=== PATIENT | female | born 1995 ===

== ENCOUNTER 2017-06-24 22:09 | Emergency (ER) | payer SELFPAY ==
[2017-06-24 22:38] VITALS: BP 103/66; PULSE 73; RESP 20; TEMP 97.7; O2SAT 99
--- NOTE | 2017-06-25 00:09 | C.PDOC ---
History Of Present Illness 21 y/o female presents to ED for evaluation on laceration sustained by broken bottle of nail guinean prior to arrival. Patient states she was opening nail guinean and bottle broke sustaining laceration to left second finger. Patient denies change in sensation, nausea, vomiting or any other complaints at this time. Tetanus vaccine is not up to date. Time Seen by Provider: 06/24/17 22:41 Chief Complaint (Nursing): Abnormal Skin Integrity History Per: Patient History/Exam Limitations: no limitations Onset/Duration Of Symptoms: Hrs Current Symptoms Are (Timing): Still Present Location Of Injury: Left: Hand Quality Of Symptoms: Painful Past Medical History Reviewed: Historical Data, Nursing Documentation, Vital Signs Vital Signs: Last Vital Signs Temp 97.7 F 06/24/17 22:33 Pulse 73 06/24/17 22:33 Resp 20 06/24/17 22:33 BP 103/66 06/24/17 22:33 Pulse Ox 99 06/25/17 00:56 Surgical History: No Surg Hx Family History: States: No Known Family Hx - Social History Hx Alcohol Use: No Hx Substance Use: No - Immunization History Hx Tetanus Toxoid Vaccination: No Hx Influenza Vaccination: No Hx Pneumococcal Vaccination: No Review Of Systems Eyes: Negative for: Vision Change Gastrointestinal: Negative for: Nausea, Vomiting Musculoskeletal: Positive for: Hand Pain Skin: Negative for: Rash Neurological: Negative for: Weakness, Numbness Physical Exam - Physical Exam Appears: Non-toxic, No Acute Distress Skin: Warm, Dry, Other (2cm skin avulsion to dorsal proximal left 2nd finger) Head: Normacephalic Eye(s): bilateral: Normal Inspection Oral Mucosa: Moist Neck: Normal ROM, Supple Chest: Symmetrical Extremity: Capillary Refill (<2 seconds), No Deformity Extremity: Bilateral: Normal ROM Pulses: Left Radial: Normal, Right Radial: Normal Neurological/Psych: Oriented x3, Normal Motor, Normal Sensation Gait: Steady ED Course And Treatment O2 Sat by Pulse Oximetry: 99 (RA) Pulse Ox Interpretation: Normal Laceration - Laceration Repair left 2nd finger Wound Length (In cm): 2 Description Of Wound: Linear Wound Cleansed With: Betadine, Sterile Saline Wound Examination: Irrigated With Saline, No FB With Wound Exploration Wound Closure: Steri Strips (7) Wound Complexity: Simple Medical Decision Making Medical Decision Making: Xray to rule out foreign body done with negative results Finger splint applied to left finger Tetanus vaccine administered Disposition - Disposition Referrals: [facility] at [facility] [Outside] Disposition: HOME/ ROUTINE Disposition Time: 00:09 Condition: GOOD Additional Instructions: Keep the area clean and dry. DO NOT WET. Follow up with the medical doctor within 1-2 days. Return if worsened. 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 - Scribe Statement The provider has reviewed the documentation as recorded by the Scribe Miguel Rodriguez All medical record entries made by the Mayaibeugenie were at my direction and personally dictated by me. I have reviewed the chart and agree that the record accurately reflects my personal performance of the history, physical exam, medical decision making, and the department course for this patient. I have also personally directed, reviewed, and agree with the discharge instructions and disposition.
--- NOTE | 2017-06-25 10:33 | RAD ---
PROCEDURE: Left Index finger radiographs. HISTORY: laceration to proximal 2nd finger r/o FB COMPARISON: None. TECHNIQUE: AP radiograph of the left hand, as well as spot oblique and lateral images of index finger were obtained. FINDINGS: LEFT INDEX FINGER: Normal left index finger, without fracture or focal lesion. Remainder of the left hand (as seen on the AP view) grossly intact. JOINTS: Normal. SOFT TISSUES: Unremarkable. No visulaized radiopaque/visualized foreign body. OTHER FINDINGS: None. IMPRESSION: No acute findings related to/accounting for the clinical presentation.
== END 2017-06-25 00:20 | disposition home or self-care (01) ==
LOC: C.ER 22:09
DX: S61.211A Laceration without foreign body of left index finger without damage to nail, initial encounter (principal); W25.XXXA Contact with sharp glass, initial encounter; Y93.89 Activity, other specified; Y92.89 Other specified places as the place of occurrence of the external cause; Z23 Encounter for immunization

== ENCOUNTER 2017-06-25 22:20 | Emergency (ER) | payer SELFPAY ==
[2017-06-25 22:30] VITALS: BP 111/68; PULSE 86; RESP 20; TEMP 97.9; O2SAT 100
--- NOTE | 2017-06-25 23:20 | C.PDOC ---
History Of Present Illness 21 year old female presents to the ED after being seen yesterday for the same laceration to her left first digit. Patient states she did not follow orders and moved her finger, removed her splint and the laceration started bleeding again. Patient denies fever, cough, rash, nausea, vomit, numbness or weakness. Time Seen by Provider: 06/25/17 22:27 Chief Complaint (Nursing): Wound Check History Per: Patient History/Exam Limitations: no limitations Onset/Duration Of Symptoms: Days Ago Current Symptoms Are (Timing): Still Present Location Of Injury: Left: Hand (Left 1st digit) Quality Of Symptoms: Painful. denies: Itching, Swollen Recent travel outside of the [place]: No Additional History Per: Patient Past Medical History Reviewed: Historical Data, Nursing Documentation, Vital Signs Vital Signs: Last Vital Signs Temp 97.9 F 06/25/17 22:26 Pulse 86 06/25/17 22:26 Resp 20 06/25/17 22:26 BP 111/68 06/25/17 22:26 Pulse Ox 100 06/26/17 02:15 - Medical History PMH: No Chronic Diseases Surgical History: No Surg Hx Family History: States: Unknown Family Hx - Social History Hx Alcohol Use: No Hx Substance Use: No - Immunization History Hx Tetanus Toxoid Vaccination: No Hx Influenza Vaccination: No Hx Pneumococcal Vaccination: No Review Of Systems Eyes: Negative for: Vision Change Gastrointestinal: Negative for: Nausea, Vomiting Musculoskeletal: Positive for: Hand Pain Skin: Positive for: Other (laceration). Negative for: Rash Neurological: Negative for: Weakness, Numbness Physical Exam - Physical Exam Appears: Non-toxic, No Acute Distress Skin: Warm, Dry, Other (2 cm avulsion to dorsal proximal left 2nd finger) Head: Normacephalic Eye(s): bilateral: Normal Inspection Oral Mucosa: Moist Neck: Normal ROM, Supple Chest: Symmetrical Extremity: Normal ROM, No Tenderness, Capillary Refill (< 2 seconds), No Deformity, No Swelling Pulses: Left Radial: Normal, Right Radial: Normal Neurological/Psych: Oriented x3, Normal Speech, Normal Cognition, Normal Motor, Normal Sensation Gait: Steady ED Course And Treatment O2 Sat by Pulse Oximetry: 100 (On RA) Pulse Ox Interpretation: Normal Laceration - Laceration Repair No standard instances Wound Length (In cm): 2 cm Description Of Wound: Linear Wound Cleansed With: Sterile Saline Wound Examination: Irrigated With Saline Wound Closure: Steri Strips Wound Complexity: Simple Medical Decision Making Medical Decision Making: Patient laceration was cleaned again this time with water and a metal splint was placed to prevent it from breaking. Antibiotics were given to prevent infections. Disposition - Disposition Referrals: [facility] at [facility] [Outside] Disposition: HOME/ ROUTINE Disposition Time: 23:17 Condition: GOOD Additional Instructions: KEEP THE SPLINT ON AND KEEP THE HAND DRY. 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 - Scribe Statement The provider has reviewed the documentation as recorded by the Scribe Dwight Weldon All medical record entries made by the Scribe were at my direction and personally dictated by me. I have reviewed the chart and agree that the record accurately reflects my personal performance of the history, physical exam, medical decision making, and the department course for this patient. I have also personally directed, reviewed, and agree with the discharge instructions and disposition.
== END 2017-06-25 23:57 | disposition home or self-care (01) ==
LOC: C.ER 22:20
DX: S61.211D Laceration without foreign body of left index finger without damage to nail, subsequent encounter (principal); X58.XXXD Exposure to other specified factors, subsequent encounter